=== PATIENT | male | born 1970 | race Two or more races ===

== ENCOUNTER 2021-08-08 10:20 | Day surgery (SDC) | payer OTHER, MEDICAID ==
[~2021-08-08] VITALS: Ht 175.3 cm; Wt 83.9 kg
[~2021-08-08 10:20] MED LIST: FAMO20TA10 PO; OMEP20TA PO; SUCR1TAB22 OR
[2021-08-08] MEDS ORDERED: SODIUM CHLORIDE LOCK 10 ML ONE (12:33)
[2021-08-08] MEDS ORDERED: MIDAZOLAM HCL 5 MG/ML-1ML VIAL ONE (12:33)
[2021-08-08] MEDS ORDERED: diphenhdrAMINE HCL 50 MG/1 ML VL ONE (12:33)
[2021-08-08] MEDS ORDERED: LIDOCAINE VISCOUS 2% 15ML UD ONE (12:33)
[2021-08-08] MEDS ORDERED: fentaNYL CITRATE 100 MCG/2 ML VL ONE (12:34)
[2021-08-08 13:16] VITALS: BP 113/76
== END 2021-08-08 14:00 | disposition home or self-care (01) ==
LOC: GI 10:20
PROVIDERS: ATTEND Internal Medicine Gastroenterology
DX: R10.9 Unspecified abdominal pain (principal); K29.50 Unspecified chronic gastritis without bleeding; K29.90 Gastroduodenitis, unspecified, without bleeding; E03.9 Hypothyroidism, unspecified; K21.9 Gastro-esophageal reflux disease without esophagitis; Z98.890 Other specified postprocedural states; Z79.899 Other long term (current) drug therapy; Z80.0 Family history of malignant neoplasm of digestive organs; Z20.822 Contact with and (suspected) exposure to COVID-19
CPT/HCPCS: 43239; 88305; 88342; J1200; J2250; J3010; J7030; U0003